=== PATIENT | female | born 1945 | race Two or more races ===

== ENCOUNTER 2018-02-07 18:38 | Inpatient (IN) | payer MEDICARE ==
[~2018-02-07] VITALS: Ht 154.9 cm; Wt 62.3 kg
[2018-02-07 22:29] VITALS: BP 125/64
[2018-02-07] MEDS ORDERED: ASPIR 8181 MG ORAL (22:39)
[2018-02-07] MEDS ORDERED: ACETAMINOPHEN325 M1 ORAL (22:39)
[2018-02-07] MEDS ORDERED: GUAIFENESI100 MG/5 M ORAL (22:45)
[2018-02-07] MEDS ORDERED: METFORMIN HCL1000 M1 ORAL (22:45)
[2018-02-07] MEDS ORDERED: FLEET ENEMA133 M1 RC (22:45)
[2018-02-07] MEDS ORDERED: BISACODYL10 M1 RC (22:45)
[2018-02-07] MEDS ORDERED: HYDRALAZINE HCL25 M2 PO (22:45)
[2018-02-07] MEDS ORDERED: HUMALOG100 UNIT/3 SUBQ (22:46)
[2018-02-07] MEDS ORDERED: Norco 5mg/325mg tab ORAL PRN (23:30)
[2018-02-07] MEDS ORDERED: Fleet's Enema 133ml RECTAL PRN (23:30)
[2018-02-08] VITALS: BP 146/81
[2018-02-08] MEDS ORDERED: guaiFENesin 100mg/5ml Liq ud ORAL SCH
[2018-02-08] MEDS: NovoLOG Insulin Flexpen SUBQ SCH ×5 (00:15→21:00)
[2018-02-08] MEDS ORDERED: HydrALAZINE 25mg tab ORAL SCH (00:15)
[2018-02-08] MEDS ORDERED: guaiFENesin 100mg/5ml Liq ud ORAL PRN (00:30)
[2018-02-08] MEDS: HydrALAZINE 25mg tab ORAL SCH ×4 (00:30→21:05)
[2018-02-08] MEDS: cefTRIAXone 1 GM in D5W 55 ML IVPB SCH ×2 (01:21→23:25)
[2018-02-08 04:00] VITALS: BP 148/78
--- NOTE | 2018-02-08 04:30 | History and Physical Report ---
DATE OF ADMISSION: 02/07/2018 HISTORY OF PRESENT ILLNESS: This is a 72-year-old female, who was living at [facility] complaining lot of pain on both legs, noted cellulitis and severe thrombophlebitis. The patient came with severe pain and also the patient is hot on touch. She has no fever or chills. PAST MEDICAL HISTORY: Significant for hypertension, diabetes, and diabetic neuropathy. ALLERGIES: NKA. MEDICATIONS: See the list. PHYSICAL EXAMINATION: GENERAL: This is an elderly female, who is currently awake and comfortable. VITAL SIGNS: Blood pressure is 140/90, pulse 74, and respirations 18. HEENT: AT/NC. EOMI. PERRLA. NECK: Supple. No supraclavicular lymphadenopathy. CHEST: Bilaterally clear. CARDIOVASCULAR: Regular rhythm. No gallop. No murmur. ABDOMEN: Soft. EXTREMITIES: With 1+ edema. Multiple varicose veins and hot on touch and tenderness on touch extremities, otherwise mild edema. GENITOURINARY: Deferred. ASSESSMENT: 1. Thrombophlebitis, rule out DVT. 2. Cellulitis. 3. Diabetes. 4. Diabetic neuropathy. 5. Hypertension. PLAN: We will currently antibiotic, Rocephin 1 g every 24 hours. Consider Vascular Surgery. Check ultrasound venous duplex to rule out DVT and pain medication, gabapentin for neuropathy. Continue sliding scale, Accu-Chek. Check labs, CBC and CMP. Dr. Isabel for Vascular Surgery consult. Eddie Bee M.D. DR: LATOYA JOB#: [id number] CC:
[2018-02-08 08:00] VITALS: BP 121/73
[2018-02-08 08:52] LABS: BASOPHILS % (AUTO) 0.9 % (0.0-2.0); EOSINOPHILS % (AUTO) 4.3 % (0.0-3.0); HEMATOCRIT 34.6 % (37.0-47.0); HEMOGLOBIN 11.5 G/DL (12.0-16.0); LYMPHOCYTES % (AUTO) 38.5 % (20.0-45.0); MEAN CORPUSCULAR VOLUME 91 FL (80-99); NEUTROPHILS % (AUTO) 50.3 % (45.0-75.0); PLATELET COUNT 252 K/UL (150-450); RED BLOOD COUNT 3.81 M/UL (4.20-5.40); WHITE BLOOD COUNT 8.7 K/UL (4.8-10.8)
[2018-02-08] MEDS: Aspirin EC 81mg tab ORAL SCH (08:58)
[2018-02-08 09:29] LABS: ALANINE AMINOTRANSFERASE 19 U/L (12-78); ALBUMIN 3.2 G/DL (3.4-5.0); ALBUMIN/GLOBULIN RATIO 0.9 (1.0-2.7); ALKALINE PHOSPHATASE 67 U/L (46-116); ANION GAP 10 mmol/L (5-15); ASPARTATE AMINO TRANSFERASE 13 U/L (15-37); BILIRUBIN,TOTAL 0.2 MG/DL (0.2-1.0); BLOOD UREA NITROGEN 31 mg/dL (7-18); CARBON DIOXIDE 26 MMOL/L (21-32); CHLORIDE 105 MMOL/L (98-107); CREATININE 0.7 MG/DL (0.55-1.30); POTASSIUM 3.9 MMOL/L (3.5-5.1); SODIUM 141 MMOL/L (136-145)
[2018-02-08] MEDS: metFORMIN 500mg tab ORAL SCH ×2 (11:56→18:27)
[2018-02-08 12:00] VITALS: BP 130/76
[2018-02-08] MEDS ORDERED: LORazepam 1mg tab ORAL PRN (12:45)
--- NOTE | 2018-02-08 12:47 | Consultation ---
History of Present Illness General Date patient seen: Feb 08, 2018 Present Illness HPI 72-year-old female, who [facility] came with cc of pain on both legs, noted cellulitis and severe thrombophlebitis. The pt has been anxious and has diff sleeping. No behavioral issues. the pt has no si/hi. Allergies: Coded Allergies: No Known Allergies (Unverified , 02/07/18) Medication History Scheduled Aspirin* (Aspir 81*), 81 MG ORAL DAILY, (Reported) Guaifenesin* (Guaifenesin), 10 ML ORAL Q6HR, (Reported) Hydralazine HCl (Hydralazine HCl), 25 MG PO Q8HR, (Reported) Metformin Hcl* (Metformin Hcl*), 1,000 MG ORAL BID, (Reported) Scheduled PRN Acetaminophen* (Acetaminophen 325MG Tablet*), 650 MG ORAL Q4H PRN for For Pain, (Reported) Acetaminophen* (Acetaminophen 325MG Tablet*), 650 MG ORAL Q4H PRN for For Headache, (Reported) Miscellaneous Medications Bisacodyl (Bisacodyl), 10 MG RC, (Reported) Insulin Lispro (Humalog), 0 SUBQ, (Reported) Na Phos,M-B/Na Phos,Di-Ba (Fleet Enema), 133 ML RC, (Reported) Patient History Limited by: medical condition History Provided By: Patient, Medical Record, PMD Healthcare decision maker Resuscitation status Advanced Directive on File Past Medical/Surgical History Past Medical/Surgical History: (1) Lower leg pain (2) lower extremity protruding varicose veins Review of Systems Psychiatric: Reports: prior hx, anxiety, depressed feelings, emotional problems Physical Exam General Appearance: no apparent distress, alert Neurologic: oriented x 3, depressed affect Last 24 Hour Vital Signs Date Time Temp Pulse Resp B/P (MAP) Pulse Ox O2 Delivery O2 Flow Rate FiO2 02/08/18 12:00 98.2 70 18 130/76 (94) 97 98.2 02/08/18 08:00 98.2 82 18 121/73 (89) 98 98.2 02/08/18 05:41 134/80 02/08/18 04:00 97.9 73 19 148/78 (101) 97 97.9 02/08/18 00:30 122/23 02/08/18 00:00 98.4 74 19 146/81 (102) 97 98.4 02/07/18 22:52 Room Air 02/07/18 22:29 98.6 81 19 125/64 (84) 96 98.6 Intake and Output 02/07/18 02/08/18 19:00 07:00 Intake Total 55 ml Balance 55 ml Intake IV Total 55 ml # Voids 1 Laboratory Tests Test 02/08/18 05:40 White Blood Count 8.7 K/UL (4.8-10.8) Red Blood Count 3.81 M/UL (4.20-5.40) L Hemoglobin 11.5 G/DL (12.0-16.0) L Hematocrit 34.6 % (37.0-47.0) L Mean Corpuscular Volume 91 FL (80-99) Mean Corpuscular Hemoglobin 30.2 PG (27.0-31.0) Mean Corpuscular Hemoglobin Concent 33.3 G/DL (32.0-36.0) Red Cell Distribution Width 11.0 % (11.6-14.8) L Platelet Count 252 K/UL (150-450) Mean Platelet Volume 6.3 FL (6.5-10.1) L Neutrophils (%) (Auto) 50.3 % (45.0-75.0) Lymphocytes (%) (Auto) 38.5 % (20.0-45.0) Monocytes (%) (Auto) 6.0 % (1.0-10.0) Eosinophils (%) (Auto) 4.3 % (0.0-3.0) H Basophils (%) (Auto) 0.9 % (0.0-2.0) Sodium Level 141 MMOL/L (136-145) Potassium Level 3.9 MMOL/L (3.5-5.1) Chloride Level 105 MMOL/L (98-107) Carbon Dioxide Level 26 MMOL/L (21-32) Anion Gap 10 mmol/L (5-15) Blood Urea Nitrogen 31 mg/dL (7-18) H Creatinine 0.7 MG/DL (0.55-1.30) Estimat Glomerular Filtration Rate mL/min (>60) Glucose Level 110 MG/DL (74-106) H Calcium Level 9.0 MG/DL (8.5-10.1) Total Bilirubin 0.2 MG/DL (0.2-1.0) Aspartate Amino Transf (AST/SGOT) 13 U/L (15-37) L Alanine Aminotransferase (ALT/SGPT) 19 U/L (12-78) Alkaline Phosphatase 67 U/L (46-116) Total Protein 6.9 G/DL (6.4-8.2) Albumin 3.2 G/DL (3.4-5.0) L Globulin 3.7 g/dL Albumin/Globulin Ratio 0.9 (1.0-2.7) L Height (Feet): 5 Height (Inches): 1.00 Weight (Pounds): 137 Medications Current Medications Medications (Trade) Dose Ordered Sig/Neftali Route PRN Reason Start Time Stop Time Status Last Admin Dose Admin Acetaminophen (Tylenol) 650 mg Q4H PRN ORAL Mild Pain (Pain Scale 1-3) 02/07/18 23:30 03/09/18 23:29 02/08/18 09:01 Acetaminophen (Tylenol) 650 mg Q4H PRN ORAL For Headache 02/07/18 23:30 03/09/18 23:29 Acetaminophen/ Hydrocodone Bitart (Walker 5/325) 1 tab Q4H PRN ORAL Moderate Pain (Pain Scale 4-6) 02/07/18 23:30 02/14/18 23:29 Aspirin (Ecotrin) 81 mg DAILY ORAL 02/08/18 09:00 03/10/18 08:59 02/08/18 08:58 Bisacodyl (Dulcolax) 10 mg DAILY PRN RECTAL Constipation 02/07/18 23:30 03/09/18 23:29 Ceftriaxone Sodium 1 gm/ Dextrose 55 ml @ 110 mls/hr Q24H IVPB 02/07/18 23:30 02/14/18 23:29 02/08/18 01:21 Dextrose (Dextrose 50%) 25 ml STAT PRN IV Hypoglycemia 02/07/18 23:45 03/09/18 23:44 Dextrose (Dextrose 50%) 50 ml STAT PRN IV Hypoglycemia 02/07/18 23:45 03/09/18 23:44 Guaifenesin (Robitussin) 200 mg Q6HR PRN ORAL For Cough 02/08/18 00:30 03/10/18 00:00 Hydralazine HCl (Apresoline) 25 mg Q8HR ORAL 02/08/18 00:30 03/10/18 00:29 02/08/18 05:41 Insulin Aspart (NovoLOG) BEFORE MEALS AND HS SUBQ 02/08/18 00:15 03/10/18 00:14 02/08/18 11:57 Metformin HCl (Glucophage) 1,000 mg BID ORAL 02/08/18 11:30 03/10/18 11:29 02/08/18 11:56 Sodium Phosphate (Fleet's Sodium Phosl Enema) 133 ml DAILYPRN PRN RECTAL Constipation 02/07/18 23:30 03/09/18 23:29 Assessment/Plan Status: stable Assessment/Plan Anxiety d/o Ativan prn provided ro/Mike Mason MD Feb 08, 2018 12:47
[2018-02-08 15:55] VITALS: BP 128/72
[2018-02-08 20:00] VITALS: BP 136/73
--- NOTE | 2018-02-08 22:15 | Progress Note ---
DATE: 02/08/2018 SUBJECTIVE: This is a 72-year-old female, who is still complaining of pain on both legs and has mild inflammation, swelling, and probably diabetic neuropathy. She has no fever. No chills. PHYSICAL EXAMINATION: GENERAL: This is an elderly female, blood pressure is 140/70, pulse 74, and respirations 18. SKIN: Good skin turgor. HEENT: NAD. CHEST: Bilaterally clear. CARDIOVASCULAR: Regular rhythm. No gallop. No murmur. ABDOMEN: Soft. EXTREMITIES: CCE. NEUROLOGICAL: The patient has no focal deficit. LABORATORY AND DIAGNOSTIC DATA: The patient's labs are pending. ASSESSMENT AND PLAN: 1. Intractable pain. 2. Cellulitis. 3. Thrombophlebitis. 4. Varicose veins. 5. Diabetic neuropathy. We will add Neurontin. Continue compression stockings. Discussed with the pain management. Eddie Bee M.D. DR: JENISE JOB#: [id number] CC:
[2018-02-09] VITALS: BP 107/66
--- NOTE | 2018-02-09 00:12 | General Progress Note ---
Progress Note Progress Note Patient seen and examined Bilateral R>L leg varicosities No leg edema Palpable femoral pop and pedal pulses Feet warm well perfused Rec Leg compression stockings Complete leg duplex Ambulate and ok for d/c planning Chiki Isabel MD Feb 09, 2018 00:12
[2018-02-09 04:00] VITALS: BP 101/54
[2018-02-09] MEDS: HydrALAZINE 25mg tab ORAL SCH ×3 (06:00→21:24)
[2018-02-09] MEDS: NovoLOG Insulin Flexpen SUBQ SCH ×4 (06:28→21:00)
[2018-02-09 08:15] VITALS: BP 130/61
[2018-02-09] MEDS: metFORMIN 500mg tab ORAL SCH ×2 (09:23→17:54)
[2018-02-09] MEDS: Aspirin EC 81mg tab ORAL SCH (09:23)
--- NOTE | 2018-02-09 11:56 | General Progress Note ---
Assessment/Plan Status: stable, progressing Assessment/Plan Anxiety d/o -Ativan prn -Neurontin prn Subjective Date patient seen: Feb 09, 2018 Neurologic/Psychiatric: Reports: anxiety, emotional problems Allergies: Coded Allergies: No Known Allergies (Unverified , 02/07/18) Subjective the pt stated that reading bible and praying helps Objective Last 24 Hour Vital Signs Date Time Temp Pulse Resp B/P (MAP) Pulse Ox O2 Delivery O2 Flow Rate FiO2 02/09/18 11:02 98.2 02/09/18 09:24 98.2 02/09/18 09:00 Room Air 02/09/18 08:15 98.6 70 19 130/61 (84) 100 98.6 02/09/18 06:00 101/54 02/09/18 04:00 98.2 68 18 101/54 (70) 99 98.2 02/09/18 00:00 98.1 73 18 107/66 (80) 96 98.1 02/08/18 21:05 136/73 02/08/18 21:00 Room Air 02/08/18 20:00 98.1 73 18 136/73 (94) 97 98.1 02/08/18 15:55 97.9 75 18 128/72 (90) 96 97.9 02/08/18 14:00 116/73 02/08/18 12:00 98.2 70 18 130/76 (94) 97 98.2 Intake and Output 02/08/18 02/09/18 19:00 07:00 Intake Total 620 ml Balance 620 ml Intake Oral 620 ml # Voids 3 1 Height (Feet): 5 Height (Inches): 1.00 Weight (Pounds): 137 General Appearance: WD/WN, no apparent distress, alert Neurologic: alert, oriented x 3, responsive, depressed affect Mike Phan MD Feb 09, 2018 11:56
[2018-02-09 12:00] VITALS: BP 129/73
[2018-02-09 16:00] VITALS: BP 110/68
[2018-02-09 20:00] VITALS: BP 130/61
[2018-02-10] VITALS: BP 111/64
[2018-02-10] MEDS: cefTRIAXone 1 GM in D5W 55 ML IVPB SCH (00:38)
[2018-02-10 04:00] VITALS: BP 130/72
[2018-02-10] MEDS: HydrALAZINE 25mg tab ORAL SCH ×2 (05:53→15:18)
[2018-02-10] MEDS: NovoLOG Insulin Flexpen SUBQ SCH ×2 (05:54→11:30)
[2018-02-10 08:00] VITALS: BP 101/67
[2018-02-10] MEDS: Aspirin EC 81mg tab ORAL SCH (08:29)
[2018-02-10] MEDS: metFORMIN 500mg tab ORAL SCH (08:29)
--- NOTE | 2018-02-10 10:46 | General Progress Note ---
Assessment/Plan Status: stable, progressing Assessment/Plan Anxiety d/o -Ativan prn -Neurontin prn Subjective Date patient seen: Feb 10, 2018 Neurologic/Psychiatric: Reports: anxiety Allergies: Coded Allergies: No Known Allergies (Unverified , 02/07/18) Subjective the pt was the same asked for Neurontin which i ordered yesterday Objective Last 24 Hour Vital Signs Date Time Temp Pulse Resp B/P (MAP) Pulse Ox O2 Delivery O2 Flow Rate FiO2 02/10/18 09:00 Room Air 02/10/18 08:00 96.5 72 18 101/67 (78) 98 96.5 02/10/18 05:53 130/72 02/10/18 04:00 97.7 19 130/72 (91) 97 97.7 02/10/18 00:00 98.3 66 19 111/64 (80) 98 98.3 02/09/18 21:24 130/61 02/09/18 21:00 Room Air 02/09/18 20:00 98.2 65 19 130/61 (84) 97 98.2 02/09/18 16:00 98.0 110/68 (82) 98.0 02/09/18 14:38 129/73 02/09/18 12:00 97.9 61 129/73 (91) 97.9 02/09/18 11:02 98.2 Intake and Output 02/09/18 02/10/18 19:00 07:00 Intake Total 1200 ml 230 ml Balance 1200 ml 230 ml Intake Oral 120 ml IV Total 110 ml Other 1200 ml # Voids 4 2 # Bowel Movements 2 1 Height (Feet): 5 Height (Inches): 1.00 Weight (Pounds): 137 General Appearance: no apparent distress, alert Neurologic: alert, oriented x 3, responsive Mike Phan MD Feb 10, 2018 10:46
[2018-02-10 12:00] VITALS: BP 126/77
[2018-02-10] MEDS ORDERED: NEURONTIN300 MG ORAL (12:47)
[2018-02-10] MEDS ORDERED: NEURONTIN600 MG ORAL (12:50)
[2018-02-10] MEDS ORDERED: NORCO 5-325 TA1 EACH ORAL (12:51)
[2018-02-10] MEDS ORDERED: LORAZEPAM1 MG ORAL (12:52)
[2018-02-10] MEDS ORDERED: CEFTRIAXON1 GM/50 ML IVPB (12:54)
--- NOTE | 2018-02-10 14:02 | Progress Note ---
DATE: 02/09/2018 NOTE: POOR AUDIO SUBJECTIVE: This is an elderly currently sitting in bed. Pain is controlled. Leg edema is improving. Cellulitis also improving. PHYSICAL EXAMINATION: VITAL SIGNS: Blood pressure is 130/70, pulse 60, no fever. CHEST: Bilaterally clear. CARDIOVASCULAR: Regular rhythm. No gallop. No murmur. ABDOMEN: Soft. EXTREMITIES: Mild tenderness improving. ASSESSMENT AND PLAN: 1. Cellulitis of the bilateral legs. 2. Thrombophlebitis 3. Varicose veins. 4. . 5. Hypertension. PLAN: We will currently continue current treatment. Continue . Continue pain medicine. Eddie Bee M.D. DR: ANGEL JOB#: [id number] CC:
[2018-02-10 15:18] VITALS: BP 126/77
--- NOTE | 2018-02-10 21:01 | Progress Note ---
DATE: 02/10/2018 SUBJECTIVE: This is an elderly female, currently is sitting and walking. Pain is controlled. Leg swelling is improved. The patient is in no distress. OBJECTIVE: VITAL SIGNS: Stable. CHEST: Bilaterally clear. CARDIOVASCULAR: Regular rhythm. ABDOMEN: Soft. EXTREMITIES: Mild tenderness, but improving. Not warm on touch. ASSESSMENT: 1. Thrombophlebitis is resolved. 2. Diabetic neuropathy. 3. Hypertension. 4. Diabetes. PLAN: We will currently continue gabapentin. Compression stockings. Continue lidocaine cream on both legs. Continue treatment. Eddie Bee M.D. DR: JENISE JOB#: [id number] CC:
--- NOTE | 2018-02-13 01:00 | Consultation ---
DATE OF CONSULTATION: 02/08/2018 VASCULAR SURGERY CONSULTATION CONSULTING PHYSICIAN: Chiki Isabel M.D. REFERRING PHYSICIAN: Sveta Townsend M.D. REASON FOR EVALUATION: Lower extremity varicose vein pain. HISTORY OF PRESENT ILLNESS: The patient is a 72-year-old female, who suffers from arthritis. The patient presented with lower extremity leg pain. The patient was found to have extensive varicosities. Vascular Surgery was consulted for further evaluation. The patient has no other complaints. PAST MEDICAL HISTORY: As above. History of arthritis and neck pain. MEDICATIONS: See attached MAR. ALLERGIES: No known drug allergies. SOCIAL HISTORY: No history of smoking, drugs, or alcohol abuse. FAMILY HISTORY: Unremarkable. SYSTEM REVIEW: CARDIOVASCULAR: No history of chest pain or palpitation. PULMONARY: No cough. No hemoptysis. GASTROINTESTINAL: No history of abdominal pain, constipation, or diarrhea. GENITOURINARY: No dysuria, frequency, or urgency. NEUROLOGICAL: No history of strokes or seizures. PHYSICAL EXAMINATION: GENERAL: The patient is afebrile VITAL SIGNS: Afebrile at 97 degrees, heart rate 80, blood pressure 130/70 and respiratory rate 16. NECK: She has palpable radial pulses bilaterally. LUNGS: Clear to auscultation bilateral. HEART: Regular rate and rhythm. ABDOMEN: Soft and nontender. EXTREMITIES: She has palpable femoral pulses. Palpable popliteal and pedal pulses bilaterally. She has extensive lower extremity varicosities. The feet are warm and well perfused. There is no edema. IMPRESSION: 1. Bilateral lower extremity varicosities, right worse than the left with palpable pedal pulses. No evidence of edema. 2. Well-perfused lower extremities with history of arthritis. PLAN AND RECOMMENDATIONS: 1. Leg compression stockings to reduce edema. 2. We will complete the lower extremity venous duplex and reflux studies. The patient should ambulate and okay for discharge, can be followed as an outpatient. Chiki Isabel M.D. DR: REINA JOB#: [id number] CC: Chiki Isabel M.D.; Fax#: [phone] SVETA TOWNSEND M.D. ; FAX#: [phone]
--- NOTE | 2018-02-13 10:03 | Discharge Summary ---
Discharge Summary Discharge Summary _ DATE OF ADMISSION: 02/07/2018 DATE OF DISCHARGE: 02/10/2018 REASON FOR ADMISSION: 72 years old female , with past medical history significant for diabetes, diabetic neuropathy, and hypertensin, resident of care home facility, was brought into the hospital for evaluation due to severe pain and edema in lower extremities, thrombophlebitis bilateral lower extremity, rule out DVT . Patient admitted with diagnoses of thrombophlebitis, rule out DVT, cellulitis , diabetes mellitus, diabetic neuropathy, hypertension. CONSULTANTS: vascular surgery Dr. Donarian psychiatrist [facility] COURSE: Patient admitted to medical surgical floor. Patient started on empiric antibiotics. Venous duplex bilateral lower extremity was negative for evidence of acute DVT. Pain management was provided. Neurontin continued. Blood sugar was managed with oral metformin and sliding scale of insulin as needed. Vascular surgery evaluation was requested. According to vascular surgeon , patient had ell-perfused lower extremities. He recommended compression stockings to reduce edema and encourage ambulation Patient ambulated . Vascular surgeon cleared patient for discharge with outpatient follow-up. Aspirin was continued. Blood pressure was managed with hydralazine and remained stable. Empiric antibiotic continued Bowel regimen instituted Psychiatrist seen and evaluated the patient , and diagnosed patient with anxiety disorder . Reality orientation and supportive therapy provided. Anxiolytics were on board as needed. Patient was stable for discharge. Outpatient follow-up with vascular surgeon as advised FINAL DIAGNOSES: Severe thrombophlebitis bilateral lower extremities, right more than left Cellulitis bilateral lower extremities Diabetic neuropathy Diabetes mellitus Hypertension Anxiety disorder DISCHARGE MEDICATIONS: See Medication Reconciliation list. DISCHARGE INSTRUCTIONS: Patient was discharged to care home facility ; follow-up with medical doctor at the facility. Follow up with the vascular surgeon as outpatient as advised. I have been assigned to dictate discharge summary for this account. I was not involved in the patient's management. Ava Doe NP Feb 13, 2018 10:03
== END 2018-02-10 15:25 | DRG 294 ==
LOC: 4E 21:40
DX: I80.3 Phlebitis and thrombophlebitis of lower extremities, unspecified (principal); L03.116 Cellulitis of left lower limb; L03.115 Cellulitis of right lower limb; I10 Essential (primary) hypertension; E11.42 Type 2 diabetes mellitus with diabetic polyneuropathy; F41.9 Anxiety disorder, unspecified; I83.93 Asymptomatic varicose veins of bilateral lower extremities; Z79.82 Long term (current) use of aspirin
CPT/HCPCS: 36415; 80053; 82962; 85025; 87081; 93970; J1815